=== PATIENT | female | born 1975 | race Caucasian/White ===

== ENCOUNTER 2024-03-30 12:10 | Emergency (ER) | payer MEDICAID ==
[~2024-03-30] VITALS: Ht 167.6 cm; Wt 79.9 kg
[2024-03-30 14:24] VITALS: TEMP 97.8
[2024-03-30] MEDS ORDERED: METH-798 PO (15:16)
[2024-03-30] MEDS ORDERED: ACET-1025 PO (15:16)
[2024-03-30 15:19] VITALS: BP 140/78; PULSE 74; RESP 16; O2SAT 99
== END 2024-03-30 15:27 | disposition home or self-care (01) ==
LOC: ER 12:11
DX: M54.50 Low back pain, unspecified (principal); Z79.899 Other long term (current) drug therapy; Z79.1 Long term (current) use of non-steroidal anti-inflammatories (NSAID)
CPT/HCPCS: 72100; 99283